=== PATIENT | male | born 1950 | race Caucasian/White ===

== ENCOUNTER 2018-05-23 07:38 | Outpatient (CLI) | payer MEDICARE, BC, SELFPAY ==
[2018-05-23 11:08] LABS: Abs Immature Grans 0.04 k/cumm (0.0-0.09); Absolute Basophil Count 0.05 k/cumm (0.0-0.2); Absolute Eosinophil Count 0.33 k/cumm (0.0-0.7); Absolute Lymphocyte Count 1.71 k/cumm (1.2-3.4); Absolute Monocyte Count 0.61 k/cumm (0.11-0.7); Absolute Neutrophil Count 4.94 k/cumm (1.2-6.7); Basophils % 0.7; Eosinophils % 4.3; HCT 41.1 % (40.0-50.0); Immature Grans % 0.5; Lymphocytes % 22.3; Mean Corp. HGB Concentration 34.1 g/dL (32.0-36.0); Mean Corpuscular Volume 93.8 fL (80-95); Mean Platelet Volume 9.1 fL (8.0-11.0); Monocytes % 7.9; Neutrophils % 64.3; Platelet Count 223 x1000/uL (130-400); RBC 4.38 m/cumm (4.50-6.00); RBC Distribution Width 13.3 % (11.8-14.1); White Blood Cell Count 7.68 k/cumm (4.4-10.8)
[2018-05-23 11:18] LABS: Hemoglobin A1C 8.4 % (4.5-6.2)
[2018-05-23 12:18] LABS: ALT 66 U/L (12-78); AST 33 U/L (15-37); Albumin 4.1 g/dL (3.4-5.0); Alkaline Phosphatase 102 U/L (46-116); Anion Gap 9.8 mmol/L (3-11); BUN 17 mg/dL (7-18); Bilirubin, Total 0.4 mg/dL (0.2-1.0); CO2 27.2 mmol/L (21.0-32.0); CREATININE 1.31 mg/dL (0.70-1.30); Calcium 9.6 mg/dL (8.5-10.1); Chloride 98 mmol/L (98-107); Estimated GFR 54.09 (mL/min/1.73m2); Glucose 205 mg/dL (70-100); Potassium 3.2 mmol/L (3.5-5.1); Sodium 135 mmol/L (136-145); Total Protein 7.3 g/dL (6.4-8.2)
[2018-05-24 15:59] LABS: Free PSA/PSA Ratio 0.33 ratio
[2018-05-26 10:20] LABS: Hepatitis C Ab w Rflx HCV PCR Negative (NEGAT)
== END 2018-05-23 07:58 ==
PROVIDERS: PCP Internal Medicine; Visit Provider Internal Medicine
DX: E11.9 Type 2 diabetes mellitus without complications (principal); I10 Essential (primary) hypertension; N52.9 Male erectile dysfunction, unspecified
CPT/HCPCS: 36415; 80053; 86803; 83036; 84154; 85025

== ENCOUNTER 2019-07-08 00:57 | Outpatient (CLI) | payer MEDICARE, BC, SELFPAY ==
[2019-07-08 16:24] LABS: Abs Immature Grans 0.08 k/cumm (0.0-0.09); Absolute Basophil Count 0.04 k/cumm (0.0-0.2); Absolute Eosinophil Count 0.31 k/cumm (0.0-0.7); Absolute Lymphocyte Count 2.27 k/cumm (1.2-3.4); Absolute Monocyte Count 0.71 k/cumm (0.11-0.7); Absolute Neutrophil Count 5.55 k/cumm (1.2-6.7); Basophils % 0.4; Eosinophils % 3.5; HCT 39.3 % (40.0-50.0); HGB 13.1 g/dL (13.5-17.5); Immature Grans % 0.9; Lymphocytes % 25.3; Mean Corp. HGB Concentration 33.3 g/dL (32.0-36.0); Mean Corpuscular Volume 96.1 fL (80-95); Mean Platelet Volume 9.1 fL (8.0-11.0); Monocytes % 7.9; Platelet Count 273 x1000/uL (130-400); RBC 4.09 m/cumm (4.50-6.00); White Blood Cell Count 8.96 k/cumm (4.4-10.8)
[2019-07-08 17:27] LABS: ALT 65 U/L (16-63); AST 28 U/L (15-37); Albumin 3.8 g/dL (3.4-5.0); Alkaline Phosphatase 88 U/L (46-116); Anion Gap 13.1 mmol/L (3-11); BUN 24 mg/dL (7-18); Bilirubin, Total 0.3 mg/dL (0.2-1.0); CO2 23.9 mmol/L (21.0-32.0); CREATININE 1.64 mg/dL (0.70-1.30); Calcium 9.5 mg/dL (8.5-10.1); Chloride 98 mmol/L (98-107); Cholesterol 146 mg/dL (50-200); Estimated GFR 41.62 (mL/min/1.73m2); Glucose 208 mg/dL (70-100); HDL Cholesterol 44 mg/dL (40-60); Potassium 4.3 mmol/L (3.5-5.1); Sodium 135 mmol/L (136-145); Total Protein 6.6 g/dL (6.4-8.2); Triglyceride 504 mg/dL (30-150)
[2019-07-08 18:18] LABS: LDL CHOLESTEROL 54 mg/dL (<100)
[2019-07-10 13:48] LABS: Lyme Ab w Rflx to Lyme Confirm Negative
[2019-07-11 00:05] LABS: Anaplasma phagocytophilum Negative (Negative); B. miyamotoi PCR Negative (Negative); Babesia divergens/MO-1 Negative (Negative); Babesia duncani Negative (Negative); Babesia microti Negative (Negative); Ehrlichia chaffeensis Negative (Negative); Ehrlichia ewingii/canis Negative (Negative); Ehrlichia muris eauclairensis Negative (Negative)
== END 2019-07-08 01:17 ==
PROVIDERS: PCP Internal Medicine; Visit Provider Internal Medicine
DX: E11.9 Type 2 diabetes mellitus without complications (principal); R50.9 Fever, unspecified; I10 Essential (primary) hypertension; M25.561 Pain in right knee; M25.562 Pain in left knee
CPT/HCPCS: 36415; 80053; 80061; 83721; 87798; 83036; 85025; 86618

== ENCOUNTER 2020-08-22 10:11 | Outpatient (CLI) | payer MEDICARE, BC, SELFPAY ==
--- NOTE | 2020-08-22 09:15 | DI.RAD_ITS ---
EXAM: XR KNEE LT 4V AP,LAT,NATHANIEL,PAT CLINICAL HISTORY: bilateral knee pain. TECHNIQUE: 2D digital imaging was performed. COMPARISON: No exams were available for comparison FINDINGS: There is no evidence of fracture nor prominent joint effusion. There are significant degenerative ch anges, albeit less than is evident in the opposite-right knee. In the left knee there is moderate-ad vanced degenerative changes 3 compartments with joint space narrowing in all 3 compartments and osteo phytes. No osseous lesions. Bone density normal. IMPRESSION: Moderate-advanced degenerative changes. No obvious joint effusion DATA REPOSITORY: RADIATION DOSE DELIVERED:
--- NOTE | 2020-08-22 09:30 | DI.RAD_ITS ---
EXAM: XR KNEE RT 3V AP,LAT,NATHANIEL CLINICAL HISTORY: bilateral knee pain. TECHNIQUE: 2D digital imaging was performed. COMPARISON: CR XR KNEE LT 4V AP,LAT,NATHANIEL,PAT from 08/22/2020 FINDINGS: There is no evidence of fracture. There is a significant joint effusion. There are advanced tricomp artmental osteoarthritic degenerative changes with joint space narrowing and prominent osteophytes in all 3 compartments. No loose intra-articular body evident. No osseous lesions. Bone density is ag e-appropriate. IMPRESSION: Advanced osteoarthritic degenerative changes. There is also a joint effusion noted. DATA REPOSITORY: RADIATION DOSE DELIVERED:
== END 2020-08-22 10:31 ==
PROVIDERS: PCP Nurse Practitioner; Referring Provider Nurse Practitioner; Visit Provider Student in an Organized Health Care Education/Training Program
DX: M17.0 Bilateral primary osteoarthritis of knee (principal); M25.461 Effusion, right knee; M17.11 Unilateral primary osteoarthritis, right knee; M17.12 Unilateral primary osteoarthritis, left knee
CPT/HCPCS: 20610; 73562; 99203; 73564; J1040

== ENCOUNTER 2021-07-07 02:13 | Outpatient (CLI) | payer MEDICARE, BC, SELFPAY ==
[2021-07-07 12:08] LABS: COMMENT (LAB VIEW ONLY) 73.34 mg/dL
[2021-07-07 12:49] LABS: Potassium 3.8 mmol/L (3.5-5.1)
[2021-07-07 13:34] LABS: CREATININE 1.4 mg/dL (0.70-1.30); Calculated LDL 60 mg/dL (<100); Cholesterol 154 mg/dL (<200); Estimated GFR 49.68 (mL/min/1.73m2); HDL Cholesterol 47 mg/dL (40-60); Triglyceride 235 mg/dL (<150)
== END 2021-07-07 02:14 | disposition home or self-care (01) ==
LOC: LBO 02:13
PROVIDERS: PCP Nurse Practitioner; Visit Provider Nurse Practitioner
DX: I10 Essential (primary) hypertension (principal); E11.9 Type 2 diabetes mellitus without complications
CPT/HCPCS: 36415; 80061; 82043; 82565; 82570; 84132

== ENCOUNTER 2021-08-04 02:06 | Outpatient (CLI) | payer MEDICARE, BC, SELFPAY ==
--- NOTE | 2021-08-04 07:45 | DI.US_ITS ---
Exam(s) US BREAST LT LIMITED MG MAMMO DIAGNOSTIC BI EXAM: MAMMO DIAGNOSTIC BI CLINICAL HISTORY: mass, breast enlargement, N63.0. TECHNIQUE: Craniocaudal and mediolateral oblique full field digital Mammography views of both breast s with Computer Aided Diagnosis followed by Tomosynthesis andleft breast ultrasound. COMPARISON: No exams were available for comparison FINDINGS: Mammography/Tomosynthesis: Masses/Architectural Distortion: Fibroglandular tissue development in the subareolar region of the le ft breast. No evidence of a focal mass. Minimal subareolar tissue on the right. Microcalcifictions: No suspicious pleomorphic-type are seen. Skin Thickening/Nipple Retraction: None. Left breast US: Echotexture: Normal appearance of the glandular tissue. Shadowing: No suspicious foci. Cyst: None. Solid lesions: None seen. Ductal dilation: None. IMPRESSION: 1. No evidence of malignancy is noted. Findings are consistent with left greater than right gynecomas tia. BI-RADS Category 2 - Benign Findings Breast Density - Category B - Scattered areas of fibroglandular density A negative radiographic report should not delay biopsy if a dominant or clinically suspicious mass is present. Up to ten percent of cancers are not identified on mammography. A negative report may reinforce clinical impression. Adenosis and dense breasts may obscure an underlying neoplasm. False positive reports average 6 to 10%. Patient will receive a letter notifying them of these results.
== END 2021-08-04 02:26 ==
PROVIDERS: PCP Nurse Practitioner; Visit Provider Nurse Practitioner
DX: N62 Hypertrophy of breast; N63.42 Unspecified lump in left breast, subareolar
CPT/HCPCS: 76642; 77062; 77066; G0279

== ENCOUNTER → 2022-03-22 11:33 | Outpatient (BNVA) | payer MEDICARE, BC, SELFPAY | PROVIDERS: PCP Nurse Practitioner; Referring Provider Nurse Practitioner; Visit Provider Physical Therapy Assistant | DX: Z12.11 Encounter for screening for malignant neoplasm of colon (principal) ==

== ENCOUNTER 2022-04-02 09:07 | Day surgery (SDC) | payer MEDICARE, BC, SELFPAY ==
--- NOTE | 2022-04-02 06:20 | W.COLOREPORT ---
Colonoscopy Report Date of procedure: 04/02/22 Pre-op diagnosis general: colon cancer screening Post-op diagnosis procedure note: other (polyps and diverticulosis) Procedure: Colonoscopy with polypectomy Surgeon: Briana Kang Anesthesia Type: General:No Airway Estimated blood loss (mL): 3 Pathology: other (transverse polyps and rectal polyps x3) Complications: None Disposition: same day Indications: The patient is here for Colonoscopy pre-op. His last screening was in 2010 and was unremarkable. He has no family history of colon cancer. He has not had any bowel habit changes. -Discussed colonoscopy bowel prep as well as the procedure. Discussed possible complications of the procedure to include bleeding, pain, perforation, missed small lesion/polyp, sore throat, aspiration and adverse reaction to the medications. Questions were answered to patient?s satisfaction. No guarantees were implied or given.? Prep: Miralax/Dulcolax Procedure Start Time: 11:28 Procedure End Time: 11:50 Retraction Time: 12 minutes Findings: 4 polyps mild diverticulosis Procedure Description: After informed consent was obtained the patient was taken to the procedure room and placed in a left decubitous position. Monitors were applied and a time out was done. The patients name, date of , procedure, allergies to medications and metal in their body was reviewed. The patient was then sedated. Once sedated and comfortable a rectal exam was done. External exam was normal. Internal exam revealed a normal sphincter tone and no palpable masses. The prostate felt smooth. The scope was then introduced and retro-flexed. No internal hemorrhoids, polyps or masses were identified on retro-flexion. The scope was then advanced to the cecum without difficulty. The ileocecal vlave and appendiceal orifice were identified. The prep was adequate. The scope was then slowly retracted over 12 minutes back into the rectum. Polyps were removed with cold forceps in the Transverse colon x1 and rectum x3. There was mild diverticulosis noted. The scope was removed and the patient was woken up and taken back to Same day surgery in stable condition. The patient tolerated the procedure well and there were no immediate complications. Follow up: The patient should follow up in 12 years unless they develop changes in bowel habits or other new gastrointestinal complaints.
--- NOTE | 2022-04-02 06:20 | W.PM.DSUDISC ---
Discharge Plan Disposition Patient Disposition: HOME Condition: Good Discharge Details Reason For Visit: colonoscopy Attending Provider: Briana Kang Primary Care Provider: Kassandra Womack Home Meds and New Rx's Prescriptions: Continued Co Q-10 300 mg capsule 300 mg PO DAILY Advair HFA 115-21 mcg/actuation HFA aerosol inhaler 2 puff inhalation BID PRN albuterol sulfate [ProAir HFA] 90 mcg/actuation HFA aerosol inhaler 2 puff Inhalation Q4H PRN Qty: 1 3RF atorvastatin [Lipitor] 20 mg tablet 20 mg PO DAILY Qty: 90 4RF azelastine 137 mcg (0.1 %) aerosol,spray 2 spray NS BID PRN (Reason: congestion) Qty: 30 6RF glucosamine sulfate 1,000 mg capsule 2,000 mg PO ONCE PreserVision AREDS-2 250-90-40-1 mg capsule 1 tab PO DAILY loratadine [Claritin RediTabs] 10 MG tablet,disintegrating 10 mg PO DAILY Fish Oil 1 EACH capsule 3 ea PO DAILY cholecalciferol (vitamin D3) [Dialyvite Vitamin D] 5,000 UNIT capsule 5,000 unit PO DAILY Qty: 90 3RF fluticasone propionate 50 mcg/actuation spray,suspension 2 spray NS DAILY Qty: 3 3RF amlodipine 10 mg tablet 10 mg PO DAILY Qty: 90 4RF fosinopril 40 mg tablet 40 mg PO HS Qty: 90 4RF glipizide 5 mg tablet 5 mg PO BID Qty: 180 4RF spironolactone 25 mg tablet 25 mg PO DAILY Qty: 90 3RF metformin 850 mg tablet 850 mg PO BID Qty: 180 4RF epinephrine [EpiPen 2-Rick] 0.3 mg/0.3 mL auto-injector 0.3 mg IM PRN Qty: 2 1RF multivitamin 1 EACH capsule 1 ea PO DAILY atenolol 50 mg tablet 50 mg PO HS Discontinued bisacodyl [Dulcolax (bisacodyl)] 5 mg tablet,delayed release (DR/EC) 5 mg PO ONCE Qty: 4 0RF Rx Instructions: Take according to provider's instructions for colonoscopy prep. polyethylene glycol 3350 17 gram/dose powder 17 g PO ONCE Qty: 238 0RF Rx Instructions: To be taken as directed by prescriber's office for colonoscopy prep. Discharge Instructions Instructions: Colorectal Polyps (DC), Diverticulosis (DC) Additional Instructions: Findings: 4 polyps Diverticulosis Follow up: 3-5 years Please call if you develop: fevers >101.5 Nausea or Vomiting Abdominal pain that is not transient Rectal bleeding that is more then a tbsp A hard abdomen and inability to pass gas DAY SURGERY UNIT POST ENDOSCOPY INSTRUCTIONS Instructions for everyone who is given Anesthesia: For your safety, please do the following for the next 24 Hours: a. Do not drive or operate dangerous equipment b. Do not drink alcohol beverages or use any recreational drugs for the first 24 hours or while taking pain medications. The medications in your body may have a reaction that can be dangerous. c. Do not make any important decisions or sign any important papers 1. Generally there are no restrictions on your activity after a day or so has gone by, but you may feel a bit fatigued for a few days. 2. After you arrive home you may have a light meal and return to a normal diet as you can tolerate it without feeling sick to your stomach. 3. After surgery, you may feel pain or discomfort. This should be only transient, but if it persists please contact your doctor. 4. If there are any questions regarding the findings of your procedure, please feel free to contact your doctor. 6. If you are unable to contact your doctor with a problem, contact the hospital at [phone]. 7. Continue all your regular medications unless directed otherwise. I understand the above instructions and have no questions. Signature of Patient or Responsible Adult Escort Date/Time Name of Responsible Adult Escort Signature of Nurse Date/Time Activity:: Activity as Tolerated Diet:: high fiber diet Discharge Orders Discharge Orders: Discharge Order (Routine); Ordered 04/02/22 Ordered By: Briana Kang
--- NOTE | 2022-04-02 06:30 | W.ANESPRE ---
General Info Date of Service Date Performed: 04/02/22 Height: 5 ft 8 in Weight: 108.635 kg Body Mass Index (BMI): 36.3 Surgical Procedure: Operation Date: 04/02/22 10:20 Proposed Procedure Side Surgeon tye Kang MD Meds Allergies and Home Medications Allergies Allergy/AdvReac Type Severity Reaction Status Date / Time venom-wasp Allergy Severe Anaphylaxsi Unverified 04/02/22 09:27 s Penicillins Allergy Unverified 04/02/22 09:27 Environmental Allergy Intermediate Rhinitis Uncoded 04/02/22 09:27 Home Medication Medication Instructions Recorded loratadine 10 mg disintegrating 10 mg PO DAILY 12/11/12 tablet (Claritin RediTabs) multivitamin 1 ea PO DAILY 12/16/12 omega-3 fatty acids-fish oil 340 3 ea PO DAILY 07/17/17 mg-1,000 mg capsule (Fish Oil) cholecalciferol (vitamin D3) 125 5,000 unit PO DAILY #90 caps 07/20/17 mcg (5,000 unit) capsule (Dialyvite Vitamin D) glucosamine sulfate 1,000 mg 2,000 mg PO ONCE 07/09/18 capsule coenzyme Q10 300 mg capsule (Co 300 mg PO DAILY 01/07/19 Q-10) fluticasone propionate 115 2 puff inhalation BID PRN 07/12/20 mcg-salmeterol 21 mcg/actuation HFA inhaler (Advair HFA) vit C 250 mg-vit E 90 mg-zinc 40 1 tab PO DAILY 01/17/21 mg-copper 1 [id number]-[id number] capsule (PreserVision AREDS-2) fluticasone propionate 50 2 spray NS DAILY #3 grams 02/03/21 mcg/actuation nasal spray,suspension amlodipine 10 mg tablet 10 mg PO DAILY #90 tab-caps 03/21/21 fosinopril 40 mg tablet 40 mg PO HS #90 tabs 03/21/21 glipizide 5 mg tablet 5 mg PO BID #180 tabs 03/21/21 spironolactone 25 mg tablet 25 mg PO DAILY hypertension #90 05/31/21 tabs albuterol sulfate 90 mcg/actuation 2 puff inhalation Q4H PRN ##1 07/13/21 aerosol inhaler (ProAir HFA) atorvastatin 20 mg tablet (Lipitor) 20 mg PO DAILY #90 tab-caps 07/13/21 azelastine 137 mcg (0.1 %) nasal 2 spray NS BID PRN congestion #30 07/13/21 spray aerosol mL metformin 850 mg tablet 850 mg PO BID #180 tabs 11/29/21 epinephrine 0.3 mg/0.3 mL 0.3 mg (0.3 mL) IM PRN #2 pens 01/29/22 injection, auto-injector (EpiPen 2-Rick) bisacodyl 5 mg tablet,delayed 5 mg PO ONCE #4 tabs 03/22/22 release (Dulcolax (bisacodyl)) polyethylene glycol 3350 17 17 g PO ONCE #238 grams 03/22/22 gram/dose oral powder atenolol 50 mg tablet 50 mg PO HS 03/30/22 Current Visit Medications: Current Medications Generic Name Dose Route Start Last Admin Trade Name Freq PRN Reason Stop Dose Admin Hyoscyamine Sulfate 0.125 mg 04/02/22 06:21 Hyoscyamine 0.125 Mg Sl/Oral/Chew SL DIRECTED PRN Ringer's Solution 1,000 mls @ 80 mls/hr 04/02/22 06:00 IV 04/29/22 23:59 INFUSION [facility] IV Miscellaneous Supplies 1 each 04/02/22 06:00 Iv Access IV 04/29/22 23:59 DIRECTED [facility] Ondansetron HCl 4 mg 04/02/22 06:21 Ondansetron 4 Mg/2 Ml Vial IVP Q4H PRN PRN Nausea / Vomiting Sodium Chloride 0 ml 04/02/22 06:00 Normal Saline Flush 10 Ml Syr IV 04/29/22 23:59 PRN PRN Sodium Chloride 0 ml 04/02/22 06:00 Normal Saline 10 Ml Vial IJ 04/29/22 23:59 DIRECTED PRN Sterile Water 0 ml 04/02/22 06:00 Water,Injection,Sterile 10 Ml Vial IJ 04/29/22 23:59 DIRECTED PRN PFSH Active Problems Active Problems: Problem Status Onset Code Asthma J45.909 Diabetes mellitus 02/23/13 E11.9 Essential hypertension 08/20/13 I10 Hyperlipidemia 08/15/91 E78.5 Polyp of colon 08/15/05 K63.5 Raynaud's disease I73.00 Osteoarthritis of right knee M17.11 Osteoarthritis of left knee M17.12 Gynecomastia, male N62 Medical History Medical History Gastric motor function disorder + Hpylori 1995 (gastroscopy); benjamin-1995; dilation esophageal stricture 1994 Low back pain L-S spine disc Surgical History Surgical History Arthroplasty of knee (~01/2006) History of Benjamin fundoplication Procedures INCISION PILONIDAL SINUS-pt. denies Repair of inguinal hernia RIGHT Tobacco Smoking/Tobacco Use Status: Never Passive smoking exposure: Yes Second hand exposure: Yes Alcohol Alcohol Intake: current Alcohol intake frequency: 0-2 drinks per day Alcohol type: beer and wine Substance Use Substance use: Never Substance use type: does not use Vital Signs and Lab Results Vital Signs Most Recent Vital Signs in EMR: Temp Pulse Resp BP Pulse Ox 36.7 C 63 18 139/71 97 04/02/22 09:37 04/02/22 09:37 04/02/22 09:37 04/02/22 09:37 04/02/22 09:37 Lab Results Blood Type / Crossmatch: No Data to Display Complete Blood Count: No Data to Display Complete Metabolic Panel: No Data to Display Liver Function Panel: No Data to Display Coagulation Panel: No Data to Display Cardiac Panel: No Data to Display Arterial Blood Gas: No Data to Display Venous Blood Gas: No Data to Display Pancreas Panel: No Data to Display Thyroid Panel: No Data to Display Infectious Disease: No Data to Display Blood Cultures: No Data to Display Toxicology Panel: No Data to Display Anesthesia Assessment and Plan Anesthesia History Personal History: No History of Anesthesia Complications Family History: No Family History of Anesthesia Complications Exercise Tolerance Exercise Tolerance: Metabolic Equivalents>4 Cardiac & Pulmonary Exam Cardiac Exam: Normal S1/S2 Heart Sounds Pulmonary Exam: Clear Bilateral Breath Sounds Implantable Cardiac Device Does patient have a Pacemaker or an ICD?: No Airway Exam Known Difficult Airway: No Mallampati Class: 2 Mouth Opening: Normal (> 3cm) Thyromental Distance: Greater than 3 cm Neck Range of Motion: Full ROM Neck Circumference: Normal Teeth Condition: Normal Dentition ASA Classification ASA Score: ASA 2 Emergency Case?: No NPO Status NPO Status: NPO Clears >2 hours, Solids >8 hours Anesthesia Plan Resuscitation Status: Full Code Anesthesia Technique: General Anesthesia Airway Planned: Natural Airway Monitors Used: Standard Monitors Preoperative Comments:: 72 yo male for screening colo Sig PMHx: DM, asthma, HTN, Raynaud's, s/p benjamin.
[2022-04-02 09:20] VITALS: BP 139/71; PULSE 63; RESP 18; TEMP 36.7; O2SAT 97
[2022-04-02 09:37] VITALS: BP 139/71; PULSE 63; RESP 18; TEMP 36.7; O2SAT 97
[2022-04-02] MEDS: Lactated Ringers 1,000 ML 80 ML IV (09:48)
[2022-04-02 10:02] VITALS: BMI 36.3
--- NOTE | 2022-04-02 11:40 | BOWEL_PTH ---
PATIENT: Artemio Vegas LOC: [facility] U#:[id number] AGE/SX: 72/M ROOM: RE04/02/[address]: Briana Kang MD : [id number] BED: DIS: 04/02/2022 SPEC #: [id number] RECD: 04/02/22 13:02 STATUS: JEFFREY REChey #: [id number] BHAKTI: 04/02/22 11:[address]: Briana Kang DEPT: Surgical Specimen RECD BY: Meka Melgar ENTERED: 04/02/22 13:03 SP TYPE: Bowel OTHR DR: Kassandra Womack, PhD STABBER Tissues: 1 - BIOPSY BOWEL 2 - BIOPSY BOWEL Procedures: GROSS AND MICRO LEVEL 4 Comments: [id number]
[2022-04-02 11:55] VITALS: BP 147/78; PULSE 63; RESP 16; TEMP 36.7; O2SAT 97
[2022-04-02] MEDS: Hyoscyamine 0.125 MG SL/ORAL/CHEW SL (12:21)
[2022-04-02 12:25] VITALS: BP 154/80; PULSE 52; RESP 16; TEMP 36.4; O2SAT 97
--- NOTE | 2022-04-02 12:37 | W.ANESPOSTOP ---
Postoperative Evaluation Date, Time and Location Date Performed: 04/02/22 Time Performed: 12:30 Patient Location: Day Surgery Unit Vital Signs Most Recent Imported Vital Signs: Most Recent Vital Signs Temp Pulse Resp BP Pulse Ox 36.7 C 63 16 147/78 H 97 04/02/22 11:55 04/02/22 11:55 04/02/22 11:55 04/02/22 11:55 04/02/22 11:55 Assessment Mental Status: Awake (Alert & Oriented to Patient Baseline) Airway and Respiratory Function: Patent airway with normal (patient baseline) respiratory exam Cardiovascular Function: Hemodynamically Stable Hydration Status: Adequately Hydrated Nausea & Vomiting: No Nausea or Vomiting Pain: Pt. Denies Any Pain Peripheral Nerve Block: Patient did not receive a nerve block
== END 2022-04-02 12:47 | disposition home or self-care (01) ==
PROVIDERS: PCP Nurse Practitioner; Visit Provider Surgery
PROC: 0DJD8ZZ Inspection of Lower Intestinal Tract, Via Natural or Artificial Opening Endoscopic (ICD-10-PCS; CPT 45378; principal; 2022-04-02 10:15)
DX: Z12.11 Encounter for screening for malignant neoplasm of colon (principal); K63.5 Polyp of colon; K57.30 Diverticulosis of large intestine without perforation or abscess without bleeding; K62.1 Rectal polyp
CPT/HCPCS: 45380; 88305; J3490

== ENCOUNTER 2024-11-22 14:28 | Emergency (ER) | payer MEDICARE, BC, SELFPAY ==
[2024-11-22] VITALS (15 sets, daily range): BP systolic 160–200; BP diastolic 64–89; PULSE 65–77; RESP 14–19; TEMP 36.5–36.6; O2SAT 92–99
--- NOTE | 2024-11-22 14:45 | DI.CT_ITS ---
Exam(s) CT HEAD CERVICAL SPINE WO EXAM: CT HEAD CERVICAL SPINE WO CLINICAL HISTORY: fall. TECHNIQUE: Imaging Protocol: Axial computed tomography images with coronal and sagittal reformatted images were created and reviewed COMPARISON: No exams were available for comparison FINDINGS: BRAIN: There are no skull fractures nor fluid in the visualized paranasal sinuses. There is no evidence of intracranial hemorrhage, mass effect, or shift of midline structures. There are no extra-axial fluid collections. The ventricles are not enlarged or shifted and there is no blo od within the ventricular system nor within the basal cisterns. CERVICAL SPINE: There is no evidence of acute fracture nor listhesis. No significant prevertebral soft tissue swelli ng. There is chronic disc space narrowing at C 5-6 level and there are prominent bilateral Luschka joint osteophytes at this level. Other disc spaces exhibit normal height. There is multilevel facet arthr opathy. No facet joint malalignment. Posteriorly there is calcification behind the distal tip of th e spinous process of C6. This is probably chronic and related to the supraspinous ligament. There is no significant facet joint malalignment. No significant osseous lesions evident. IMPRESSION: No acute intracranial findings on this noninfused CT scan of the brain. No evidence of cervical spine fracture, malalignment, nor acute compromise of the cervical spinal can al. Chronic degenerative disc disease at C5-6 level and facet arthropathy which is most prominent at the C 3-4 level. Report called by myself to ER physician 11/22/2024 at 3:53 p.m. RADIATION DOSE DELIVERED: 1,412.03mGy.cm Total DLP DATA REPOSITORY: All CT scans at this facility are submitted to the National Radiology Data Registry (NRDR) Dose Index Registry (DIR) with the [employer] ([employer]). RADIATION OPTIMIZATION: All CT scans at this facility use at least one of these dose optimization te chniques: automated exposure control; mA and/or kV adjustment per patient size (includes targeted exa ms where dose is matched to clinical indication); or iterative reconstruction.
--- NOTE | 2024-11-22 15:09 | W.ED.GENAD ---
Discharge Plan Disposition Patient Disposition: Home Discharge Details Clinical Impression: Closed head injury, Concussion, Laceration of scalp, Contusion of face, Fall from slipping on ice Primary Care Provider: Stan Ang ED Provider: Alex Vaughn Home Meds and New Rx's Prescriptions: No Action Co Q-10 300 mg capsule 300 mg PO DAILY fluticasone propion-salmeterol [Advair HFA] 115-21 mcg/actuation HFA aerosol inhaler 2 puff inhalation BID PRN (Reason: SOB) Qty: 12 0RF atenolol 50 mg tablet 50 mg PO HS Qty: 90 3RF atorvastatin [Lipitor] 20 mg tablet 20 mg PO DAILY Qty: 90 3RF glipizide 5 mg tablet 5 mg PO BID Qty: 180 4RF fosinopril 40 mg tablet 40 mg PO HS Qty: 90 3RF metformin 850 mg tablet 850 mg PO BID Qty: 180 4RF glucosamine sulfate 1,000 mg capsule 2,000 mg PO ONCE PreserVision AREDS-2 250-90-40-1 mg capsule 1 tab PO DAILY loratadine [Claritin RediTabs] 10 MG tablet,disintegrating 10 mg PO DAILY Fish Oil 1 EACH capsule 3 ea PO DAILY cholecalciferol (vitamin D3) [Dialyvite Vitamin D] 5,000 UNIT capsule 5,000 unit PO DAILY Qty: 90 3RF fluticasone propionate 50 mcg/actuation spray,suspension 2 spray NS DAILY Qty: 3 3RF epinephrine [EpiPen 2-Rick] 0.3 mg/0.3 mL auto-injector 0.3 mg IM PRN Qty: 2 1RF albuterol sulfate [ProAir HFA] 90 mcg/actuation HFA aerosol inhaler 2 puff Inhalation Q4H PRN Qty: 1 3RF azelastine 137 mcg (0.1 %) aerosol,spray 2 spray NS BID PRN (Reason: congestion) Qty: 30 6RF amlodipine 10 mg tablet See Rx Instructions .ROUTE .COMPLEX Qty: 90 3RF Dose Instruction: TAKE ONE TABLET BY MOUTH EVERY DAY Rx Instructions: TAKE ONE TABLET BY MOUTH EVERY DAY spironolactone 25 mg tablet See Rx Instructions .ROUTE .COMPLEX Qty: 90 3RF Dose Instruction: TAKE ONE TABLET BY MOUTH EVERY DAY FOR HTN Rx Instructions: TAKE ONE TABLET BY MOUTH EVERY DAY FOR HTN multivitamin 1 EACH capsule 1 ea PO DAILY Discharge Instructions Instructions: Postconcussion syndrome Additional Instructions: Your CT imaging does not reveal an acute injury You have a small cut on the back of your scalp and this was closed with a Steri-Strip. This will eventually fall off in a few days. You can take a shower starting tomorrow, but do not scrub the area. You may want to put an ice pack on there to help with bruising and swelling. You may notice some slight drainage over the next 24 hours Engage with brain rest: Decrease stimulation, lights and sounds, to help with any symptoms of concussion, fogginess or nausea Take Tylenol as needed for pain. You will likely be more sore tomorrow after the fall to make sure to drink lots of water and do some gentle stretching HPI General Date/Time Provider Initiated Documentation: 11/22/24 14:50. Limitations to Documentation: no limitations. Information obtained by: patient and family. HPI Narrative: 74-year-old gentleman with past medical history of hypertension, diabetes, asthma presents for evaluation after a fall. Patient was walking to the car with his when he slipped on the ice and fell striking his head. There was loss of consciousness and he does not remember anything regarding the fall. There was no preceding symptoms of chest pain, shortness of breath or lightheadedness. He states that he does remember that the driveway was very icy. He reports pain in his head associated with a small wound there. He states that he also broke his glasses has a bruise to the bridge of his nose. He denies other pain in his neck back or hips. He was able to get up with the assistance of his and was able to ambulate without difficulty Related Data Home Medications ?Medication ?Instructions ?Recorded ?Confirmed loratadine 10 mg disintegrating 10 mg PO DAILY 12/11/12 11/22/24 tablet (Claritin RediTabs) multivitamin 1 ea PO DAILY 12/16/12 11/22/24 omega-3 fatty acids-fish oil 340 3 ea PO DAILY 07/17/17 11/22/24 mg-1,000 mg capsule (Fish Oil) cholecalciferol (vitamin D3) 125 5,000 unit PO DAILY #90 caps 07/20/17 11/22/24 mcg (5,000 unit) capsule (Dialyvite Vitamin D) glucosamine sulfate 1,000 mg 2,000 mg PO ONCE 07/09/18 11/22/24 capsule coenzyme Q10 300 mg capsule (Co 300 mg PO DAILY 01/07/19 11/22/24 Q-10) vit C 250 mg-vit E 90 mg-zinc 40 1 tab PO DAILY 01/17/21 11/22/24 mg-copper 1 cf-cxctim-vufuew capsule (PreserVision AREDS-2) fluticasone propionate 50 2 spray NS DAILY #3 grams 02/03/21 11/22/24 mcg/actuation nasal spray,suspension epinephrine 0.3 mg/0.3 mL 0.3 mg (0.3 mL) IM PRN #2 pens 01/29/22 11/22/24 injection, auto-injector (EpiPen 2-Rick) albuterol sulfate 90 mcg/actuation 2 puff inhalation Q4H PRN ##1 07/17/22 11/22/24 aerosol inhaler (ProAir HFA) fluticasone propionate 115 2 puff inhalation BID PRN SOB #12 08/22/22 11/22/24 mcg-salmeterol 21 mcg/actuation grams HFA inhaler (Advair HFA) azelastine 137 mcg (0.1 %) nasal 2 spray NS BID PRN congestion #30 12/04/22 11/22/24 spray mL amlodipine 10 mg tablet See Rx Instructions .Route 05/22/24 11/22/24 .COMPLEX #90 tabs spironolactone 25 mg tablet See Rx Instructions .Route 05/22/24 11/22/24 .COMPLEX #90 tabs atenolol 50 mg tablet 50 mg PO HS #90 tabs 10/19/24 11/22/24 atorvastatin 20 mg tablet (Lipitor) 20 mg PO DAILY #90 tab-caps 10/19/24 11/22/24 fosinopril 40 mg tablet 40 mg PO HS #90 tabs 10/19/24 11/22/24 glipizide 5 mg tablet 5 mg PO BID #180 tabs 10/19/24 11/22/24 metformin 850 mg tablet 850 mg PO BID #180 tabs 10/19/24 11/22/24 Previous Rx's ?Medication ?Instructions ?Recorded cholecalciferol (vitamin D3) 125 5,000 unit PO DAILY #90 caps 07/20/17 mcg (5,000 unit) capsule (Dialyvite Vitamin D) fluticasone propionate 50 2 spray NS DAILY #3 grams 02/03/21 mcg/actuation nasal spray,suspension epinephrine 0.3 mg/0.3 mL 0.3 mg (0.3 mL) IM PRN #2 pens 01/29/22 injection, auto-injector (EpiPen 2-Rick) albuterol sulfate 90 mcg/actuation 2 puff inhalation Q4H PRN ##1 07/17/22 aerosol inhaler (ProAir HFA) fluticasone propionate 115 2 puff inhalation BID PRN SOB #12 08/22/22 mcg-salmeterol 21 mcg/actuation grams HFA inhaler (Advair HFA) azelastine 137 mcg (0.1 %) nasal 2 spray NS BID PRN congestion #30 12/04/22 spray mL amlodipine 10 mg tablet See Rx Instructions .Route 05/22/24 .COMPLEX #90 tabs spironolactone 25 mg tablet See Rx Instructions .Route 05/22/24 .COMPLEX #90 tabs atenolol 50 mg tablet 50 mg PO HS #90 tabs 10/19/24 atorvastatin 20 mg tablet (Lipitor) 20 mg PO DAILY #90 tab-caps 10/19/24 fosinopril 40 mg tablet 40 mg PO HS #90 tabs 10/19/24 glipizide 5 mg tablet 5 mg PO BID #180 tabs 10/19/24 metformin 850 mg tablet 850 mg PO BID #180 tabs 10/19/24 Allergies Allergy/AdvReac Type Severity Reaction Status Date / Time venom-wasp Allergy Severe Anaphylaxsi Unverified 11/22/24 14:35 s Penicillins Allergy Unknown Unverified 11/22/24 14:35 Environmental Allergy Intermediate Rhinitis Uncoded 11/22/24 14:35 General Stated Complaint: HeadInjury NICOLLE: 3 Exam Narrative Exam Narrative: Review of Systems: All systems reviewed & are unremarkable except as noted in HPI and below Well-developed, no acute distress 1cm laceration to the crown of the head posterior scalp, no skull deformity, no active bleeding There is small abrasions at the nasal bridge corresponding to eyeglasses, no facial instability or malocclusion No C-spine tenderness step-off or deformity, full range of motion of the neck PERRL, normal conjunctiva RRR, no murmur Unlabored respiratory effort, clear bilaterally Nondistended abdomen , soft nontender Chronic lower extremity edema, no tenderness or deformity, full range of motion of bilateral lower extremities, pelvis stable no focal neurologic deficits, gait observed to be normal Course Vital Signs Vital signs: Vital Signs Temperature 36.5 C 11/22/24 14:31 Pulse 76 11/22/24 14:31 Respiratory Rate 16 11/22/24 14:31 Blood Pressure 191/89 H 11/22/24 14:31 Pulse Oximetry 92 11/22/24 14:31 Temperature 36.5 C 11/22/24 14:31 Pulse 76 11/22/24 14:31 Respiratory Rate 16 11/22/24 14:31 Respiratory Depth Normal 11/22/24 14:43 Respiratory Pattern Normal 11/22/24 14:43 Blood Pressure 191/89 H 11/22/24 14:31 Blood Pressure Position Supine 11/22/24 14:31 Pulse Oximetry 92 11/22/24 14:31 Oxygen Delivery Method Room Air 11/22/24 14:31 Oxygen Flow Rate 0 11/22/24 14:31 Pain Level 4 11/22/24 14:31 Procedure Laceration Laceration 1: Site: scalp Description: linear Depth: simple, single layer Skin layer closed with: other (steristrips) Medical Decision Making Emergent evaluation of acute head injury after mechanical fall. Fall secondary to slip on ice. I do not have a suspicion for a syncope or cardiogenic event that caused him to fall. I do suspect that he might have a mild concussion based on his amnesia preceding the event. He is not on any blood thinners. There is no other signs of deformity. Plan for CT imaging and wound repair. Amnesia has improved throughout the emergency department stay. I discussed the CT imaging with the radiologistand there is no acute intracranial process. The small laceration was repaired with a Steri-Strip. Concussion precautions and home care was discussed. Wound care for the laceration was discussed. Follow-up with PCP as needed. Quality:SDOH Health Related Social Needs: No Data to Display PFSH All Active Problems (Updated 11/22/24 @ 16:03 by Alex Vaughn MD) Fall from slipping on ice (Acute) Contusion of face (Acute) Laceration of scalp (Acute) Concussion (Acute) Closed head injury (Acute) Hyperplastic colon polyp (Acute) Tubular adenoma of colon (Acute) Asthma (Acute) Diabetes mellitus (Acute 02/23/13) Essential hypertension (Acute 08/20/13) Hyperlipidemia (Acute 08/15/91) Polyp of colon (Acute 08/15/05) hyperplastic polyp per colonoscopy 2005 COLON POLYP 2010 Raynaud's disease (Acute) Osteoarthritis of right knee (Acute) Osteoarthritis of left knee (Acute) Gynecomastia, male (Acute) 2021: L>R, [place] mammo & [place] Medical History COVID-19 Onset 07/14/22 Fully vaccinated with two boosters Low back pain 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 denies Repair of inguinal hernia RIGHT Arthroplasty of knee (~01/2006) Family History Mother , AGE 75 Alcohol abuse Asthma Stroke Hypertension CHF (congestive heart failure) Father , AGE 67 Mouth cancer Throat cancer Alcohol abuse Sister Depression Ovarian cancer Brother Alcohol abuse Asthma Depression Hyperlipidemia Maternal Grandfather , AGE 69 Stroke Heart disease Paternal Grandfather , AGE 30 Heart disease Maternal Grandmother , AGE 85 Diabetes Paternal Grandmother No problems noted. Daughter Alcohol abuse Asthma Depression Hypertension Substance abuse Daughter Alcohol abuse Depression Substance abuse Social History Smoking/Tobacco Use Status: Never Second Hand Exposure: Yes Smoking risk assessment performed?: Yes Alcohol Intake: current Alcohol Intake frequency: 0-2 drinks per day Alcohol type: beer and wine Drug use: Never Substance use type: does not use Counseling given: No Caregiver/Support person: No Household members: spouse Housing: house Communication Needs: None Do you need help understanding health information?: Never Pets and animals: Yes Pets and animals: dog(s) Sexually active: No Do you think of yourself as: straight/heterosexual Current gender identity: male What is your relationship status?: How often do you talk on the phone with friends or family?: twice per week How often do you get together with friends or relatives?: once per week How often do you attend christianity or synagogue services?: decline to answer Do you belong to any clubs or organized social groups?: no Panel score (0-1 are the most socially isolated patients): 2 Duration: < 15 minutes/day Frequency: 1-2 times per week Clair/Congregation: None Special clair needs: No Seatbelt use: always Drive intox or ride w/intox 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 Do you feel safe at home: Yes Do you feel safe in your relationship?: Yes Victim of sexual abuse: No Would you like helpful sources: No PAWSS Have you Been Recently Intoxicated or Drunk Within the Last 30 days?: No Have you Ever Experienced Previous Episodes of Alcohol Withdrawal?: No Have you ever Experienced Withdrawal Seizures?: No Have you ever Experienced Delirium Tremens(DT)s?: No Have you ever undergone Alcohol Rehabilitation Treatment (i.e, inpt ot outpatient treatment programs)?: No Have you ever Experienced Blackouts?: No Have you ever Combined Alcohol with other Downers within the last 90 days?: No Have you ever Combined Alcohol with any other Substance of Abuse during the last 90 days?: No Positive Blood Alcohol level on Presentation? [PCS.BAL]: No Evidence of Increased Autonomic Activity (i.e. HR>120, tremor, sweating, agitation, nausea)?: No Result: 0
[2024-11-22] MEDS: Acetaminophen 500 MG TAB 1000 MG PO (15:18)
== END 2024-11-22 16:33 | disposition home or self-care (01) ==
PROVIDERS: Emergency Provider Emergency Medicine; PCP Nurse Practitioner Family
DX: S01.01XA Laceration without foreign body of scalp, initial encounter; S06.0XAA Concussion with loss of consciousness status unknown, initial encounter; W00.0XXA Fall on same level due to ice and snow, initial encounter
CPT/HCPCS: 99284; 70450; 72125; 99283

== ENCOUNTER 2024-12-10 02:40 | Outpatient (CLI) | payer MEDICARE, BC, SELFPAY ==
[2024-12-10 13:05] LABS: ALT 45 U/L (16-63); AST 24 U/L (15-37); Albumin 3.8 g/dL (3.4-5.0); Alkaline Phosphatase 93 U/L (46-116); Anion Gap 10.7 mmol/L (3-11); BUN 21 mg/dL (7-18); Bilirubin, Total 0.5 mg/dL (0.2-1.0); CO2 25.3 mmol/L (21.0-32.0); CREATININE 1.7 mg/dL (0.70-1.30); Calcium 9.4 mg/dL (8.5-10.1); Calculated LDL 63 mg/dL (<100); Chloride 101 mmol/L (98-107); Cholesterol 160 mg/dL (<200); Estimated GFR 41.26 (mL/min/1.73m2); Glucose 216 mg/dL (74-106); HDL Cholesterol 50 mg/dL (>or=40); Potassium 4.5 mmol/L (3.5-5.1); Sodium 137 mmol/L (136-145); Total Protein 6.6 g/dL (6.4-8.2); Triglyceride 239 mg/dL (<150)
[2024-12-10 18:29] LABS: HBs Antibody, Quant 66.6 mIU/mL (See Note); Hep B Surface Ab Positive (See Note); Hepatitis B Core Antibody Negative (Negative); Hepatitis B Surface Antigen Negative (Negative)
[2024-12-10 18:40] LABS: HIV-1/2 Ag & Ab Screen Negative (Negative)
== END 2024-12-10 02:41 | disposition home or self-care (01) ==
LOC: LOS 02:41
PROVIDERS: PCP Nurse Practitioner Family; Visit Provider Nurse Practitioner Family
DX: E78.2 Mixed hyperlipidemia (principal); Z11.59 Encounter for screening for other viral diseases; Z11.4 Encounter for screening for human immunodeficiency virus [HIV]
CPT/HCPCS: 36415; 80053; 80061; 86704; 86706; 87340; 87389

== ENCOUNTER 2025-06-29 19:10 | Emergency (ER) | payer MEDICARE, BC, SELFPAY ==
[2025-06-29 19:28] VITALS: BP 169/82; PULSE 75; RESP 20; TEMP 36.8; O2SAT 94
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
[2025-06-29] MEDS: Lidocaine 1% Pres-Free W/EPI 1/200,000 30 ML VIAL IJ (21:15)
== END 2025-06-29 22:15 | disposition home or self-care (01) ==
PROVIDERS: Emergency Provider Student in an Organized Health Care Education/Training Program; PCP Nurse Practitioner Family
DX: S51.811A Laceration without foreign body of right forearm, initial encounter (principal); X58.XXXA Exposure to other specified factors, initial encounter
CPT/HCPCS: 12002; J2004

== ENCOUNTER 2025-08-09 17:54 | Outpatient (REF) | payer MEDICARE, BC, SELFPAY ==
[2025-08-09 18:16] LABS: Anion Gap 10.1 mmol/L (3-11); BUN 28 mg/dL (9-23); CO2 22.9 mmol/L (20.0-31.0); Calcium 9.3 mg/dL (8.3-10.6); Chloride 98 mmol/L (98-107); Glucose 259 mg/dL (74-106); Potassium 4.2 mmol/L (3.5-5.1); Sodium 131 mmol/L (136-145)
== END 2025-08-09 17:55 | disposition home or self-care (01) ==
LOC: LBN 17:54
PROVIDERS: PCP Nurse Practitioner Family; Visit Provider Family Medicine
DX: I10 Essential (primary) hypertension (principal)
CPT/HCPCS: 80048